=== PATIENT | female | born 1980 | race African-American/Black ===

== ENCOUNTER 2016-10-08 21:51 | Emergency (ER) | payer MEDICAID ==
[2016-10-09] MEDS ORDERED: BENZONATATE 100 MG CAPSULE PO ONE (01:16)
--- NOTE | 2016-10-09 01:46 | ER Document Report ---
ED General - General Chief Complaint: Cough Stated Complaint: DIFFICULTY BREATHING Notes: Patient is a 36-year-old female with past medical history of morbid obesity and asthma who presents with concerns of a cough and dental pain. Although patient does not initially complain of dental pain in triage she does focus on this with me and completely ignores her written concerns of coughing associated chest pain. Patient is asking for narcotic pain medications. She states that tooth #17 has a dull, constant, throbbing pain to it. This has been ongoing for the past 2 days. It is worsened by eating and drinking. Nothing improves the pain. She states that she's also had a dry, nonproductive persistent cough for the past 3 days. States this feels similar to when she's had bronchitis in the past. States that she was coughing while she was in custodial but they would not send her for medical care. Multiple sick contacts with similar symptoms. She has not done anything to treat this cough. Notes that the cough is associated with a dull throbbing pain to the chest when she coughs denies any chest pain in isolation from the coughing events. Denies any history of DVT or pulmonary embolus. No shortness of breath. When I entered the room the patient is sitting in a chair, has her legs up on the stretcher and is laughing and talking on her cell phone. TRAVEL OUTSIDE OF THE [place] IN LAST 30 DAYS: No - Related Data Allergies/Adverse Reactions: haloperidol [From Haldol] Allergy (Verified 10/08/16 22:16) risperidone [From Risperdal] Allergy (Verified 10/08/16 22:16) ziprasidone [From Geodon] Allergy (Verified 10/08/16 22:16) Past Medical History - General Information source: Patient - Social History Smoking Status: Never Smoker Frequency of alcohol use: None Drug Abuse: None Lives with: Family Family History: Reviewed & Not Pertinent Patient has suicidal ideation: No Patient has homicidal ideation: No Renal/ Medical History: Denies: Hx Peritoneal Dialysis Review of Systems - Review of Systems Notes: Constitutional: Negative for fever. HENT: Negative for sore throat. Eyes: Negative for visual changes. Cardiovascular: Negative for chest pain. Respiratory: Negative for shortness of breath. Positive for cough Gastrointestinal: Negative for abdominal pain, vomiting or diarrhea. Genitourinary: Negative for dysuria. Musculoskeletal: Negative for back pain. Skin: Negative for rash. Neurological: Negative for headaches, weakness or numbness. 10 point ROS negative except as marked above and in HPI. Physical Exam - Vital signs Vitals: Temp Pulse Resp BP Pulse Ox 97.7 F 63 18 169/91 H 100 10/08/16 22:13 10/08/16 22:13 10/08/16 22:13 10/08/16 22:13 10/08/16 22:13 Interpretation: Hypertensive Notes: PHYSICAL EXAMINATION: GENERAL: Well-appearing, well-nourished and in no acute distress. HEAD: Atraumatic, normocephalic. EYES: Pupils equal round and reactive to light, extraocular movements intact, sclera anicteric, conjunctiva are normal. ENT: nares patent, oropharynx clear without exudates. Moist mucous membranes. Diffusely poor dentition. Innumerable dental caries. Patient points to #17 when asked which tooth hurts the worst NECK: Normal range of motion, supple without lymphadenopathy LUNGS: Breath sounds clear to auscultation bilaterally and equal. No wheezes rales or rhonchi. HEART: Regular rate and rhythm without murmurs ABDOMEN: Soft, nontender, normoactive bowel sounds. No guarding, no rebound. No masses appreciated. EXTREMITIES: Normal range of motion, no pitting or edema. No cyanosis. NEUROLOGICAL: No focal neurological deficits. Moves all extremities spontaneously and on command. PSYCH: Normal mood, normal affect. SKIN: Warm, Dry, normal turgor, no rashes or lesions noted. Course - Re-evaluation Re-evalutation: 10/09/16 01:41 Presentation is most consistent with likely an infected tooth. Airway is patent. Vitals within normal limits. Patient is able swallow without any difficulty. There is no significant facial swelling. Patient will be started on antibiotics I've instructed to follow-up with dentistry as earliest ability for definitive management. Patient also complained of a persistent cough with associated chest discomfort when she coughs. Presentation is most consistent with a viral upper respiratory infection. Patient is overall well appearance, vitals within normal limits, well-hydrated. Patient denies any headache, neck pain, and has no evidence of meningismus on examination. Lungs are clear bilaterally. No evidence of respiratory distress. Based on clinical exam and history, I do not suspect an acute pneumonia, meningitis, strep pharyngitis, or an acute encephalitis. Chest x-ray is clear. At this time will discharge with return precautions and follow-up recommendations. Verbal discharge instructions given a the bedside and opportunity for questions given. Medication warnings reviewed. Patient is in agreement with this plan and has verbalized understanding of return precautions and the need for primary care follow-up in the next 24-72 hours. - Vital Signs Vital signs: Temp Pulse Resp BP Pulse Ox 98.1 F 56 L 18 159/88 H 100 10/09/16 02:06 10/09/16 02:06 10/09/16 02:06 10/09/16 02:06 10/09/16 02:06 - Diagnostic Test Radiology reviewed: Image reviewed, Reports reviewed Radiology results interpreted by me: 10/09/16 03:45 Chest x-ray: No acute infiltrate Discharge - Discharge Clinical Impression: Pain, dental, Bronchitis Condition: Good Disposition: HOME, SELF-CARE Additional Instructions: You were seen for symptoms most consistent with bronchitis. This can take up to 12 weeks to fully resolve. This is generally due to a viral infection. Please follow-up with your primary doctor in the next 2-3 days. Return if you develop worsening cough, vomiting, fever >100.4, pass out, begin coughing blood, or have any other symptoms that are concerning to you. Please use the medications prescribed today as directed. You have been seen for dental pain. It is very important that you follow-up with a dentist for definitive care. Please return if you develop fever greater than 101, swelling in your face, vomiting, difficulty breathing or swallowing, or any other symptoms that are concerning to you. For pain you should take ibuprofen 600 mg every 6 hours as needed. Prescriptions: Penicillin V Potassium [Penicillin Vk 500 mg Tablet] 500 mg PO BID #20 tablet
[2016-10-09 02:07] VITALS: BP 159/88
== END 2016-10-09 02:06 | disposition home or self-care (01) ==
LOC: ER 21:51
DX: K08.9 Disorder of teeth and supporting structures, unspecified (principal); J40 Bronchitis, not specified as acute or chronic; R06.00 Dyspnea, unspecified; E66.01 Morbid (severe) obesity due to excess calories
CPT/HCPCS: 99283; 71010; J3490

== ENCOUNTER 2017-08-14 15:12 | Emergency (ER) | payer MEDICAID ==
[2017-08-14] MEDS ORDERED: TRAMADOL HCL 50 MG TABLET PO ONE (16:47)
[2017-08-14] MEDS ORDERED: LISINOPRIL 10 MG TABLET PO ONE (16:47)
[2017-08-14] MEDS ORDERED: ALBUTEROL SULFATE 0.083% NEB 2.5 MG/3 ML AMPUL NEB ONE (16:47)
--- NOTE | 2017-08-14 16:50 | ER Document Report ---
ED Medical Screen (RME) - General Chief Complaint: Asthma Exacerbation Stated Complaint: BLOOD PRESSURE PROBLEM Time Seen by Provider: 08/14/17 16:38 Mode of Arrival: Ambulatory Information source: Patient TRAVEL OUTSIDE OF THE [place] IN LAST 30 DAYS: No - HPI Onset: Yesterday - P.M. Onset/Duration: Gradual, Intermittent - NOT ASSOCIATED W/ ACTIVITY Context: Patient states she was in the mental health section of [facility] 2 [facility], was discharged yesterday with prescriptions but has not had a chance to get her prescriptions filled, therefore she has not taken her lisinopril and albuterol. Quality of pain: Dull, Other - TIGHT Severity: Mild Associated Symptoms: Cough (nonproductive), Shortness of breath. denies: Nausea , Sweating Exacerbated by: Denies Relieved by: Denies Similar symptoms previously: Yes - ASTHMA Recently seen / treated by doctor: Yes - MENTAL HEALTH - Related Data Smoking: Non-smoker Frequency of alcohol use: None Drug Abuse: None Allergies/Adverse Reactions: haloperidol [From Haldol] Allergy (Verified 08/14/17 15:13) risperidone [From Risperdal] Allergy (Verified 08/14/17 15:13) ziprasidone [From Geodon] Allergy (Verified 08/14/17 15:13) Past Medical History - General Information source: Patient - Social History Cigarette use (# per day): No Chew tobacco use (# tins/day): No Frequency of alcohol use: None Drug Abuse: None Lives with: Family Family history: None - Past Medical History Cardiac Medical History: Reports: Hx Hypertension Pulmonary Medical History: Reports: Hx Asthma, Hx Bronchitis Neurological Medical History: Reports: None Endocrine Medical History: Reports: None Renal/ Medical History: Reports: None. Denies: Hx Peritoneal Dialysis Malignancy Medical History: Reports: None GI Medical History: Reports: None Musculoskeltal Medical History: Reports None Psychiatric Medical History: Reports: Hx Bipolar Disorder, Hx Schizophrenia Past Surgical History: Reports: Hx Section - x2, Hx Orthopedic Surgery - thumb Review of Systems - Review of Systems Constitutional: Weakness EENT: No symptoms reported Cardiovascular: See HPI Respiratory: See HPI Gastrointestinal: No symptoms reported Genitourinary: No symptoms reported Female Genitourinary: No symptoms reported Musculoskeletal: No symptoms reported Skin: No symptoms reported Neurological/Psychological: No symptoms reported Physical Exam - Vital signs Vitals: Temp Pulse Resp BP Pulse Ox 98.9 F 104 H 22 H 138/85 H 98 08/14/17 15:23 08/14/17 15:23 08/14/17 15:23 08/14/17 15:23 08/14/17 15:23 Interpretation: Tachycardic, Tachypneic. No: Hypertensive, Hypoxic, Febrile - General General appearance: Appears well, Alert In distress: None - HEENT Head: Normocephalic Eyes: Normal Conjunctiva: Normal Ears: Normal Nasal: Normal Mouth/Lips: Normal Mucous membranes: Normal - Respiratory Respiratory status: No respiratory distress Breath sounds: Wheezing - MID EXPIRATORY. NO EXP. PROLONGATION. - Cardiovascular Rhythm: Regular Heart sounds: Normal auscultation Murmur: No - Abdominal Inspection: Obese - Extremities General upper extremity: Normal inspection General lower extremity: Normal inspection. No: Edema - Neurological Neuro grossly intact: Yes Cognition: Normal Orientation: AAOx4 - Psychological Associated symptoms: Normal affect, Normal mood - Skin Skin Temperature: Warm Skin Moisture: Dry Skin Color: Normal Skin Turgor: Elastic Course - Vital Signs Vital signs: Temp Pulse Resp BP Pulse Ox 98.9 F 104 H 22 H 138/85 H 98 08/14/17 15:23 08/14/17 15:23 08/14/17 15:23 08/14/17 15:23 08/14/17 15:23
[2017-08-14] MEDS ORDERED: GUAIFENESIN SYRP 200 MG/10 ML UDC PO ONE (16:57)
[2017-08-14 17:32] LABS: ABSOLUTE BASOPHILS # (AUTO) 0.1 10^3/uL (0.0-0.2); ABSOLUTE EOSINOPHILS # (AUTO) 0.4 10^3/uL (0.0-0.6); ABSOLUTE LYMPHOCYTES (AUTO) 3.8 10^3/uL (0.5-4.7); ABSOLUTE MONOCYTES (AUTO) 0.9 10^3/uL (0.1-1.4); ABSOLUTE NEUT (AUTO) 6.1 10^3/uL (1.7-8.2); BASOPHILS % (AUTO) 0.9 % (0-2); EOSINOPHILS % (AUTO) 3.7 % (0-6); HEMOGLOBIN 14.4 g/dL (12.0-15.5); LYMPHOCYTES % (AUTO) 33.6 % (13-45); MEAN CORPUSCULAR HEMOGLOBIN 29.9 pg (27.0-33.4); MEAN CORPUSCULAR HGB CONC 33.6 g/dL (32.0-36.0); MEAN CORPUSCULAR VOLUME 89 fl (80-97); MONOCYTES % (AUTO) 7.6 % (3-13); PLATELET COUNT 376 10^3/uL (150-450); RED BLOOD COUNT 4.82 10^6/uL (3.72-5.28); RED CELL DISTRIBUTION WIDTH 13.2 % (11.5-14.0); SEGMENTED NEUTROPHILS % (AUTO) 54.2 % (42-78); TOTAL CELLS COUNTED % (AUTO) 100 %; WHITE BLOOD COUNT 11.2 10^3/uL (4.0-10.5)
--- NOTE | 2017-08-14 17:47 | RADIOLOGY REPORT (SQ) ---
EXAM DESCRIPTION: CHEST PA/LAT COMPLETED DATE/TIME: 08/14/2017 5:38 pm REASON FOR STUDY: DYSPNEA, CHEST PAIN COMPARISON: 2017 TECHNIQUE: Frontal and lateral radiographic views of the chest acquired. NUMBER OF VIEWS: Two view. LIMITATIONS: None. FINDINGS: LUNGS AND PLEURA: No opacities, masses or pneumothorax. No pleural effusion. MEDIASTINUM AND HILAR STRUCTURES: No masses or contour abnormalities. HEART AND VASCULAR STRUCTURES: Heart normal size. No evidence for failure. BONES: No acute findings. HARDWARE: None in the chest. OTHER: No other significant finding. IMPRESSION: NO SIGNIFICANT RADIOGRAPHIC FINDING IN THE CHEST. TECHNICAL DOCUMENTATION: JOB ID: [id number] [employer]- All Rights Reserved
[2017-08-14 17:49] LABS: ALANINE AMINOTRANSFERASE 25 U/L (9-52); ALBUMIN 4.3 g/dL (3.5-5.0); ALKALINE PHOSPHATASE 90 U/L (38-126); ANION GAP 13 (5-19); ASPARTATE AMINO TRANSFERASE 25 U/L (14-36); BLOOD UREA NITROGEN 14 mg/dL (7-20); CALCIUM 9.5 mg/dL (8.4-10.2); CARBON DIOXIDE 28 mmol/L (22-30); CHLORIDE 104 mmol/L (98-107); CREATINE KINASE 423 U/L (30-135); GLUCOSE 95 mg/dL (75-110); POTASSIUM 4.2 mmol/L (3.6-5.0); SODIUM 144.5 mmol/L (137-145); TOTAL PROTEIN 6.9 g/dL (6.3-8.2)
[2017-08-14 17:50] LABS: BILIRUBIN,TOTAL < 0.1 mg/dL (0.2-1.3)
[2017-08-14 18:01] LABS: TROPONIN I < 0.012 ng/mL
--- NOTE | 2017-08-14 20:54 | ER Document Report ---
ED General - General Mode of Arrival: Ambulatory Information source: Patient TRAVEL OUTSIDE OF THE [place] IN LAST 30 DAYS: No <KEZIA HERNANDEZ - Last Filed: 08/14/17 21:07> <LUDWIN BECERRA - Last Filed: 08/14/17 23:43> - General Chief Complaint: Asthma Exacerbation Stated Complaint: BLOOD PRESSURE PROBLEM Time Seen by Provider: 08/14/17 16:38 Notes: Patient is a 37-year-old female who presents to the emergency department today with multiple complaints over a broad period of time. When specifically asked what brought her here today, patient states she was kicked out of the "[facility]" and she called them and they told her to come to the emergency department for help getting into drug rehab. Patient states she smokes crack, stating last night she "someone made her smoke it". Patient mentions several things including that she thinks she needs an inhaler because she is wheezing. Patient states she has a cough and sometimes brings up "prickly black stuff". Patient mentions that she has been in [facility] times and that they will not take her anymore because she has children. Patient states her children are currently in custody of [employer]. Patient also complains of chest pain for the last 2 weeks. Patient does not mention auditory or visual hallucinations. Patient denies fevers. (KEZIA HERNANDEZ) - Related Data Allergies/Adverse Reactions: haloperidol [From Haldol] Allergy (Verified 08/14/17 15:13) risperidone [From Risperdal] Allergy (Verified 08/14/17 15:13) ziprasidone [From Geodon] Allergy (Verified 08/14/17 15:13) Past Medical History - General Information source: Patient - Social History Smoking Status: Current Every Day Smoker Cigarette use (# per day): No Chew tobacco use (# tins/day): No Frequency of alcohol use: None Drug Abuse: None Lives with: Family Family History: Reviewed & Not Pertinent Patient has suicidal ideation: No Patient has homicidal ideation: No - Past Medical History Cardiac Medical History: Reports: Hx Hypertension Pulmonary Medical History: Reports: Hx Asthma, Hx Bronchitis Renal/ Medical History: Denies: Hx Peritoneal Dialysis Psychiatric Medical History: Reports: Hx Bipolar Disorder, Hx Schizophrenia Past Surgical History: Reports: Hx Section - x2, Hx Orthopedic Surgery - thumb <EKZIA HERNANDEZ - Last Filed: 08/14/17 21:07> Review of Systems - Review of Systems Constitutional: denies: Fever EENT: No symptoms reported Cardiovascular: See HPI, Chest pain Respiratory: See HPI, Wheezing Gastrointestinal: No symptoms reported Genitourinary: No symptoms reported Female Genitourinary: No symptoms reported Musculoskeletal: No symptoms reported Skin: No symptoms reported Hematologic/Lymphatic: No symptoms reported Neurological/Psychological: No symptoms reported -: Yes All other systems reviewed and negative <KEZIA HERNANDEZ - Last Filed: 08/14/17 21:07> Physical Exam <KEZIA HERNANDEZ - Last Filed: 08/14/17 21:07> <LUDWIN BECERRA - Last Filed: 08/14/17 23:43> - Vital signs Vitals: Temp Pulse Resp BP Pulse Ox 98.9 F 104 H 22 H 138/85 H 98 08/14/17 15:23 08/14/17 15:23 08/14/17 15:23 08/14/17 15:23 08/14/17 15:23 - Notes Notes: PHYSICAL EXAM GENERAL: Alert, generally interacts well. Obese. No acute distress. HEAD: Normocephalic, atraumatic. EYES: Pupils equal, round, and reactive to light. Extraocular movements intact. ENT: Oral mucosa moist, tongue midline. NECK: Full range of motion. Supple. Trachea midline. LUNGS: Wheezing in upper lobes bilaterally, no rales or rhonchi. No respiratory distress. HEART: Regular rate and rhythm. No murmurs, gallops, or rubs. ABDOMEN: Soft, non-tender. Non-distended. Bowel sounds present in all 4 quadrants. No guarding, rigidity, or rebound. EXTREMITIES: Moves all 4 extremities spontaneously. No edema, radial and dorsalis pedis pulses 2/4 bilaterally. No cyanosis. NEUROLOGICAL: Alert and oriented x3. Normal speech. PSYCH: Mild flight of ideas. Normal affect, normal mood. SKIN: Warm, dry, normal turgor. No rashes or lesions noted, no trackmarks appreciated. (KEZIA HERNANDEZ) Course - Laboratory Result Diagrams: 08/14/17 17:10 08/14/17 17:10 <KEZIA HERNANDEZ - Last Filed: 08/14/17 21:07> - Laboratory Result Diagrams: 08/14/17 17:10 08/14/17 17:10 <LUDWIN BECERRA - Last Filed: 08/14/17 23:43> - Re-evaluation Re-evalutation: 08/14/17 21:01 CBC shows slight leukocytosis 11.2, chemistries unremarkable other than elevated CK 423, this is not surprising given her recent use of crack cocaine, cardiac enzymes otherwise negative, chest x-ray unremarkable. EKG does have some abnormal T waves which are being rechecked. Chest pain has been going on constantly for 2-3 weeks per patient. I suspect this is related to cocaine use. Patient is oxygenating well, not hypoxic, not tachypneic, in no respiratory distress. Patient does exhibit some flight of ideas on examination but generally does appear stable from a psychiatric standpoint. Patient does have multiple complaints however in general seems the patient is only here to get referrals to rehab and have a refill of her albuterol. Patient assures me that she has a primary care physician as well as a psychiatrist. There is no evidence of suicidal or homicidal ideation, no evidence of auditory or visual hallucinations. At present so long as a repeat EKG does not change or improves patient will be discharged home with a refill of her albuterol and a list of resources for rehab and homeless shelters. Patient repeatedly mentions her children, children are in custody of the state. 08/14/17 23:20 Repeat cardiac enzymes continue to be negative, CK is downtrending, repeat EKG did show some new T-wave inversions however there are no ST segment elevations or depressions. Patient has been given an albuterol inhaler, given resources for outpatient and inpatient rehab, no evidence of STEMI or non-STEMI at this point. Patient is now requesting be discharged home. Patient will be discharged, also given homeless resources sheet. (LUDWIN BECERRA) - Vital Signs Vital signs: Temp Pulse Resp BP Pulse Ox 98.9 F 60 20 120/60 95 08/14/17 15:23 08/14/17 23:28 08/14/17 23:28 08/14/17 23:28 08/14/17 23:28 - Laboratory Laboratory results interpreted by me: 08/14/17 08/14/17 08/14/17 17:10 17:10 22:11 WBC 11.2 H Est GFR (Non-Af Amer) 51 L Total Bilirubin < 0.1 L Creatine Kinase 423 H 416 H - EKG Interpretation by Me Additional EKG results interpreted by me: 08/14/17 21:03 EKG shows sinus rhythm at a rate of 82, normal axis, normal intervals, no ST segment elevations or depressions, there are T-wave inversions in 1, aVL, V5 and V6 per my interpretation. 08/14/17 23:20 Repeat EKG shows sinus rhythm at a rate of 78, T-wave inversions persist in lead I and aVL, there are newly biphasic T waves in V3 and V4, T-wave inversions are persistent in V5 and V6, no ST segment elevations or depressions , normal axis, normal intervals per my interpretation. (LUDWIN BECERRA) Discharge <KEZIA HERNANDEZ - Last Filed: 08/14/17 21:07> <LUDWIN BECERRA - Last Filed: 08/14/17 23:43> - Discharge Clinical Impression: Medication refill, Crack cocaine use, Chest pain of uncertain etiology Hypertension Qualifiers: Hypertension type: essential hypertension Qualified Code(s): I10 - Essential ( primary) hypertension Asthma exacerbation Qualifiers: Asthma severity: mild Asthma persistence: intermittent Qualified Code(s): J45.21 - Mild intermittent asthma with (acute) exacerbation Condition: Stable Disposition: HOME, SELF-CARE Additional Instructions: Please stop using crack cocaine. Please stop using marijuana. Please stop smoking cigarettes. All of these are likely making her chest pain worse and increased risk of heart attack. Today we did not see any signs of heart attack. If your chest pain worsens please return. We have given you a list of resources in the community for rehab and homeless resources as well. Please follow-up with your psychiatrist. Please follow-up with your primary care physician for further management of your blood pressure. Forms: Smoking Cessation Education Referrals: HOLLY TODD PA-C [Primary Care Provider] - Follow up in 1 week Scribe Attestation: 08/14/17 23:43 I personally performed the services described in the documentation, reviewed and edited the documentation which was dictated to the scribe in my presence, and it accurately records my words and actions. (LUDWIN BECERRA) Scribe Documentation - Scribe Written by Scribe:: Nadege Garcia, [id number] acting as scribe for :: Willa <KEZIA HERNANDEZ - Last Filed: 08/14/17 21:07>
[2017-08-14] MEDS ORDERED: ALBUTEROL SULFATE HFA (90 MCG/PUFF) 8 GM MDI (1 MDI/ER DISP) IH ONE (21:00)
--- NOTE | 2017-08-14 22:03 | EKG REPORT ---
SEVERITY:- ABNORMAL ECG - SINUS RHYTHM PROBABLE LEFT ATRIAL ABNORMALITY ABNORMAL T, CONSIDER ISCHEMIA, LATERAL LEADS : Confirmed by: Ana Caballero 14-Aug-2017 22:02:10
--- NOTE | 2017-08-14 22:03 | EKG REPORT ---
SEVERITY:- ABNORMAL ECG - SINUS RHYTHM NONSPECIFIC T ABNORMALITIES, ANT-LAT LEADS : Confirmed by: Ana Caballero 14-Aug-2017 22:01:58
[2017-08-14 22:53] LABS: CREATINE KINASE MB 3.07 ng/mL (<4.55); TROPONIN I < 0.012 ng/mL
[2017-08-14 23:42] VITALS: BP 120/60
== END 2017-08-14 23:42 | disposition home or self-care (01) ==
LOC: ER 15:12
DX: F14.90 Cocaine use, unspecified, uncomplicated (principal); R07.9 Chest pain, unspecified; I10 Essential (primary) hypertension; J45.21 Mild intermittent asthma with (acute) exacerbation
CPT/HCPCS: 93005; 94640; 99285; 36415; 82553; 82550; 85025; 80053; 84484; 71046; 93010; J3490 ×3